=== PATIENT | female | born 1975 | race Caucasian/White ===

== ENCOUNTER 2017-04-23 09:41 | Day surgery (SDC) | payer OTHER ==
--- NOTE | 2017-04-22 15:08 | HISTORY AND PHYSICAL E ---
History and Physical NAME: ELADIA OWENS : 1975 AGE: 41Y ADMITTED: 04/23/2017 ROOM: CHIEF COMPLAINT: Patient presents with reflux, atypical chest pain, bloating. SOCIAL HISTORY: . She smokes 1 pack of cigarettes every 3 days. She quit drinking. SURGERIES: 1. Breast implant. 2. D and C. REVIEW OF SYSTEMS: HEENT: Negative. RESPIRATORY: Negative. CARDIAC: Atypical chest pain. ENDOCRINE: Negative. GI: Reflux, chest pain with reflux, bloating, epigastric abdominal pain. ONCOLOGY/HEMATOLOGY: Negative. NEUROPSYCHIATRIC: Depression and anxiety. FAMILY HISTORY: Father is alive with heart disease and stent. Mom is alive with heart disease and stent. PHYSICAL EXAMINATION: VITAL SIGNS: A 41-year-old female. Weight 140. Blood pressure 100/70, pulse 80, respirations 20, temp 98. HEENT: Normal. ABDOMEN: Soft. NEUROLOGIC: Exam negative. MEDICATIONS: 1. Lexapro. 2. Wellbutrin. 3. Nexium. 4. Naltrexone. 5. Chantix. ASSESSMENT: The patient presented with gastroesophageal reflux. PLAN: Upper endoscopy scheduled for 04/23/2017. DICTATING PHYSICIAN: LEILA CAMPBELL M.D. [id number] [facility]#: [id number] ID: [id number] JOB#: [id number] ACCT: [id number] cc:[facility], LEILA CAMPBELL M.D. >
[~2017-04-23 09:41] MED LIST: EPINEPHRINE INJ 1 MG/10 ML DISP.SYRIN ONE; FENTANYL CITRATE INJ/PF 100 MCG/2 ML AMPUL ONE; FLUMAZENIL INJ 0.5 MG/5 ML VIAL IV ONE; GLYCOPYRROLATE INJ 0.4 MG/2 ML VIAL ONE; NALOXONE HCL INJ/PF 0.4 MG/1 ML SDV ONE; ONDANSETRON HCL INJ/PF 4 MG/2 ML SDV ONE
[2017-04-23] MEDS: MIDAZOLAM 2 MG/2 ML INJ ONE ×3 (10:26→10:34)
[2017-04-23 12:07] LABS: ABSOLUTE BASOPHILS # (AUTO) 0.1 10^3/uL (0.0-0.2); ABSOLUTE EOSINOPHILS # (AUTO) 0.2 10^3/uL (0.0-0.6); ABSOLUTE LYMPHOCYTES (AUTO) 1.5 10^3/uL (0.5-4.7); ABSOLUTE MONOCYTES (AUTO) 0.5 10^3/uL (0.1-1.4); BASOPHILS % (AUTO) 1.3 % (0-2); EOSINOPHILS % (AUTO) 3.3 % (0-6); HEMATOCRIT 37.1 % (36.0-47.0); HEMOGLOBIN 12.8 g/dL (12.0-15.5); HGB HCT DIFFERENCE 1.3; LYMPHOCYTES % (AUTO) 28.7 % (13-45); MEAN CORPUSCULAR HEMOGLOBIN 31.8 pg (27.0-33.4); MEAN CORPUSCULAR HGB CONC 34.6 g/dL (32.0-36.0); MEAN CORPUSCULAR VOLUME 92 fl (80-97); MONOCYTES % (AUTO) 9.9 % (3-13); RED BLOOD COUNT 4.03 10^6/uL (3.72-5.28); RED CELL DISTRIBUTION WIDTH 13.2 % (11.5-14.0); SEGMENTED NEUTROPHILS % (AUTO) 56.8 % (42-78); WHITE BLOOD COUNT 5.2 10^3/uL (4.0-10.5)
[2017-04-23 12:17] VITALS: BP 108/68
[2017-04-23 12:23] LABS: ALANINE AMINOTRANSFERASE 21 U/L (9-52); ALBUMIN 3.6 g/dL (3.5-5.0); ALKALINE PHOSPHATASE 50 U/L (38-126); ANION GAP 8 (5-19); ASPARTATE AMINO TRANSFERASE 16 U/L (14-36); BILIRUBIN,DIRECT 0.2 mg/dL (0.0-0.4); BILIRUBIN,TOTAL 0.5 mg/dL (0.2-1.3); BLOOD UREA NITROGEN 9 mg/dL (7-20); CALCIUM 8.8 mg/dL (8.4-10.2); CARBON DIOXIDE 24 mmol/L (22-30); CHLORIDE 108 mmol/L (98-107); GLUCOSE 139 mg/dL (75-110); POTASSIUM 4.8 mmol/L (3.6-5.0); SODIUM 140.1 mmol/L (137-145); TOTAL PROTEIN 6.3 g/dL (6.3-8.2)
--- NOTE | 2017-04-23 18:55 | OPERATIVE REPORT E ---
Operative Report NAME: ELADIA OWENS : 1975 AGE: 41Y DATE OF SURGERY: 04/23/2017 ROOM: PREOPERATIVE DIAGNOSIS: Abdominal pain. POSTOPERATIVE DIAGNOSES: 1. Esophagitis, mild. 2. Gastritis, mild. PROCEDURE: Esophagoscopy, gastroscopy, duodenoscopy. SURGEON: LEILA CAMPBELL M.D. ANESTHESIA: Difficult to sedate. She was given Versed 6 mg and Fentanyl 175 mcg, and she was trying to pull the scope after the sedation. For future endoscopy, please consider propofol with anesthesia standby. TISSUE REMOVED OR ALTERED: None. DESCRIPTION OF PROCEDURE: The baby scope passed under guided vision, no difficulties. Esophagoscopy: Junction at 35, no hernia, mild esophagitis. Gastroscopy: No ulcers, mild gastritis. Duodenoscopy: No ulcers, mild duodenitis. The patient tolerated the procedure well and was discharged to her room in stable condition. CONCLUSIONS: 1. No ulcers, no bleeding. 2. Mild esophagitis. 3. Mild gastritis. 4. Mild duodenitis. DICTATING PHYSICIAN: LEILA CAMPBELL M.D. 1209M [id number] PHY#: [id number] ID: [id number] JOB#: [id number] ACCT: [id number] cc:[facility], LEILA CAMPBELL M.D. >
--- NOTE | 2017-04-23 18:56 | DISCHARGE SUMMARY E ---
Discharge Summary NAME: ELADIA OWENS : 1975 AGE: 41Y ADMITTED: 04/23/2017 DISCHARGED: 04/23/2017 HOSPITAL COURSE: The patient is 41, presented with abdominal pain. Endoscopy was successful with good sedation, but the patient is difficult to go into adequate sedation with biopsy and further evaluation in the future to be done with OR propofol, anesthesia standby. Again, 41-year-old female. Upper scope shows no ulcers. She did have mild gastritis, mild esophagitis. She smokes. DISCHARGE MEDICATIONS: She is taking the following medications: 1. Wellbutrin. 2. Lexapro. 3. Naltrexone. Upper scope shows no ulcers, mild esophagitis, mild gastritis. DISCHARGE PLAN: Lab studies. Followup office visit in the next few days. FINAL DIAGNOSES: 1. Esophagitis. 2. Gastritis. PROCEDURE: EGD. DICTATING PHYSICIAN: LEILA CAMPBELL M.D. [id number] PHY#: [id number] ID: [id number] JOB#: [id number] ACCT: [id number] cc:LEILA CAMPBELL M.D. >
[2017-04-26 07:13] LABS: DEAMIDATED GLIADIN IGA AB 9 units (0-19); DEAMIDATED GLIADIN IGG AB 1 units (0-19); IMMUNOGLOBULIN A 2 180 mg/dL (87-352); T-TRANSGLUTAMINASE (TTG) IGG <2 U/mL (0-5)
== END 2017-04-23 12:10 | disposition home or self-care (01) ==
LOC: END 09:41
PROVIDERS: ATTEND Specialist
PROC: 0DJD8ZZ Inspection of Lower Intestinal Tract, Via Natural or Artificial Opening Endoscopic (ICD-10-PCS; principal; 2017-04-23 10:00)
DX: K21.0 Gastro-esophageal reflux disease with esophagitis (principal); K29.70 Gastritis, unspecified, without bleeding; F17.210 Nicotine dependence, cigarettes, uncomplicated; K29.80 Duodenitis without bleeding; Z79.899 Other long term (current) drug therapy
CPT/HCPCS: 43235; 86677 ×3; 36415; 85025; 80053; 83520 ×5; J2250; J3010; J0171; J2310; J2405; J3490